=== PATIENT | male | born 1990 | race Caucasian/White ===

== ENCOUNTER 2017-06-14 12:18 | Emergency (ER) | payer OTHER ==
[~2017-06-14] VITALS: Ht 175.3 cm; Wt 79.7 kg
[2017-06-14 14:24] VITALS: BP 146/79
--- NOTE | 2017-06-14 14:33 | REP ---
LEFT FINGERS, FOUR VIEWS: HISTORY: Trauma. There is no acute fracture or dislocation. The joint spaces are normal in appearance. IMPRESSION: There is no acute or dislocation. Signed by Vel Huerta MD 06/14/2017 02:36 P
== END 2017-06-14 14:43 | disposition home or self-care (01) ==
LOC: M ED 12:18
DX: S60.012A Contusion of left thumb without damage to nail, initial encounter (principal); F17.210 Nicotine dependence, cigarettes, uncomplicated; W22.8XXA Striking against or struck by other objects, initial encounter; Y92.018 Other place in single-family (private) house as the place of occurrence of the external cause; Y99.9 Unspecified external cause status; Y93.9 Activity, unspecified